=== PATIENT | female | born 1960 | race Caucasian/White ===

== ENCOUNTER 2024-10-08 10:15 | Emergency (ER) | payer MEDICARE, MEDICAID, SELFPAY ==
[2024-10-08 10:22] VITALS: BP 131/80
--- NOTE | 2024-10-08 10:35 | ED.GENMED ---
History of Present Illness
General
Chief Complaint: Head Injury
Source: palliative care specialist
Exam Limitations: none
Time Seen by Provider: 10/08/24 10:31
Nursing documentation reviewed up to this point in time: agreed with
History of Present Illness
History of Present Illness:
Patient is a 64-year-old female past medical history of seizures autism diabetes reflux hyperlipidemia brought by caregiver. Patient lives in a private home and has 24-hour caregiver. The caregiver today who was bedside patient noticed patient had
bruising which was not there previously. She contacted caregiver from yesterday who reported patient did not have a fall with her. Caregiver brought patient here to evaluate bruising to the right face and is concerned the patient fell which was
unwitnessed.
Patient is awake alert able to answer certain questions. When I asked what happened she will tell me' I fell.'
Caregiver mentions that patient's kidney function has been abnormal however this has been followed as an outpatient and she gets monthly blood work not related to today's visit.
Caregiver reports patient is at baseline mental status.
Past History
Past History
ED Past Medical History: None
ED Past Surgical History: None
Review of Systems
Review of Systems
Allergies reviewed?: Yes
All Other Systems: ROS reviewed and negative except as documented in HPI and ROS
Constitutional: Reports no symptoms
Phy Exam
General Physical Exam
General Presentation: no apparent distress
General age: appears stated age
General Skin: warm and dry
General Habitus: normal
General Mental: alert
General Hydration: appears well hydrated
Eye Exam
Eye Exam: PERRL and EOMI
Eye Exam General: PERRL: bilateral and EOM intact: bilateral
Pupil Exam: Bilateral: irregular and round
Neurological Exam
Neurological Exam: alert and other (able to answer some questions )
Musculoskeletal Exam
Musculoskeletal Exam: full ROM and other (old appearing ecchymosis to right face )
Skin Exam
Skin Exam: normal color and warm/dry
Psychiatric Exam
Psychiatric Exam: normal mood/affect
Course
Orders/Labs/Results
Orders:
Orders
10/08/24 10:40
CT Head W/o Iv Contrast Urgent
Comment:
Reason For Exam: trauma
10/08/24 10:41
CT Facial Bones W/o Iv Contras Urgent
Comment:
Reason For Exam: trauma
Vital Signs
Initial and Last Documented VS:
Initial Vital Signs
Temp Pulse Resp BP Pulse Ox
98.2 F 80 16 131/80 98
10/08/24 10:22 10/08/24 10:22 10/08/24 10:22 10/08/24 10:22 10/08/24 10:22
Last Documented Vital Signs
Temp Pulse Resp BP Pulse Ox
98.2 F 80 16 131/80 98
10/08/24 10:22 10/08/24 10:22 10/08/24 10:22 10/08/24 10:22 10/08/24 10:22
MDM/Problems Addressed
Differential Diagnosis Includes:
not limited to: contusion, facial fracture, intracranial hemorrhage
MDM/Problems Addressed:
Patient was brought for unwitnessed fall. Caregiver noticed bruising the patient's face today. Patient has intellectual disability but is able to tell me she fell. She has some old appearing bruising to right facial bones. She is not on blood
thinners. CT head and facial bones were done and negative. She has no other bony complaints or abnormalities on exam she is no acute distress and stable for discharge home.
Caregiver reports the patient is being followed by family doctor for abnormal kidney function however not pertaining to this visit
*Radiology
Radiology exam reviewed: radiology read reviewed
*Pulse Oximetry
Patient hypoxic: no
*Critical Care Note
Total Time (30-74mins, 75-104mins- exclusive of procedures): Not Applicable
ED Attending Note
-
Portions of this chart may have been created with voice recognition software.� Occasional wrong word or��sound alike� substitutions may have occurred due to the inherent limitations of voice recognition software.
Discharge Plan
Departure
Patient Disposition: Home (Routine Discharge)
Date of Disposition: 10/08/24
Time of Disposition: 12:13
Patient with high blood pressure during this ER visit?: Yes
Condition: Fair
Covid-19: Not Applicable
Discharge Problem:
Contusion
Instructions: Contusion (DC), BLOOD PRESSURE
Referrals:
Lalita James MD [Family Provider] -
Activity Restrictions/Additional Instructions:
As discussed a CAT scan was done of patient's head and facial bones both of which are negative.
Follow-up with family doctor as needed
Interventions
Interventions:
*Risk Screen - Suicide Last Done: 10/08/24 10:22
*General Assessment Last Done: 10/08/24 10:24
*Neglect/Abuse Screening Last Done: 10/08/24 10:22
*ED- Fall Risk Assessment Last Done: 10/08/24 10:25
*ED COVID-19 Vaccine History Last Done: 10/08/24 10:25
*Nursing Disposition Last Done: 10/08/24 12:27
ED- Neurological Assessment Last Done: 10/08/24 10:24
ED-Skin Assessment Last Done: 10/08/24 10:24
Discharge Date and Time
Discharge Date/Time: 10/08/24 12:27
Print Language: URDU
== END 2024-10-08 12:27 | disposition home or self-care (01) ==
LOC: EMR 10:15
PROVIDERS: EMERGENCY PHYSICIAN Emergency Medicine; FAMILY PHYSICIAN Internal Medicine
DX: S00.83XA Contusion of other part of head, initial encounter (principal); W19.XXXA Unspecified fall, initial encounter; G40.909 Epilepsy, unspecified, not intractable, without status epilepticus; F84.0 Autistic disorder; E11.9 Type 2 diabetes mellitus without complications; E78.00 Pure hypercholesterolemia, unspecified; F79 Unspecified intellectual disabilities; Z86.73 Personal history of transient ischemic attack (TIA), and cerebral infarction without residual deficits
CPT/HCPCS: 99284; 70450; 70486

== ENCOUNTER 2024-11-19 14:05 | Emergency (ER) | payer MEDICARE, MEDICAID, SELFPAY ==
[2024-11-19 14:11] VITALS: BP 104/65
--- NOTE | 2024-11-19 16:13 | ED.GENMED ---
Addendum entered and electronically signed by Petros Degroot PA-C 11/22/24 06:10:
Luminary urine culture shows greater than 100,000 colony-forming units of gram-negative bacilli. On Omnicef. Sensitivities pending.
Original Note:
History of Present Illness
<Leslie Leahy PA-C - Last Filed: 11/19/24 21:49>
General
Chief Complaint: Change in Mental Status
Source: patient and career orientation teacher
Exam Limitations: altered mental status
Time Seen by Provider: 11/19/24 15:39
Nursing documentation reviewed up to this point in time: agreed with
History of Present Illness
History of Present Illness:
Patient is a 64-year-old female with history intellectual disability, hypertension, hyperlipidemia, diabetes, epilepsy presented to the emergency department with caregivers from retirement for evaluation of altered mental status. Patient's
caregiver state that yesterday patient started singing songs which continued throughout the entire day. They state this is very atypical behavior. When patient woke this morning�she continued with random singing. Her caregivers are wondering if
she may have a UTI. However after speaking with her primary care provider they recommended evaluation in the emergency department for imaging.
They state that otherwise she is at her baseline mental status. She is alert and oriented. She is eating and drinking normally. She has had no recent fever or infectious symptoms. They deny any weakness and states that patient is ambulating at
her baseline.
Patient denies any current discomfort including headache, chest pain, shortness of breath, or abdominal pain.
They deny any recent fall or trauma.
Past History
<Leslie Leahy PA-C - Last Filed: 11/19/24 21:49>
Past History
ED Past Medical History: None
ED Past Surgical History: None
Review of Systems
<Leslie Leahy PA-C - Last Filed: 11/19/24 21:49>
Review of Systems
Allergies reviewed?: Yes
All Other Systems: ROS reviewed and negative except as documented in HPI and ROS
Phy Exam
<Leslie Leahy PA-C - Last Filed: 11/19/24 21:49>
Physical Exam
Physical Exam:
Vitals: Patient's vital signs are stable
General: Patient is well appearing, no acute distress
Skin: Warm and dry, no rashes or lesions
Head: Normocephalic, atraumatic
Eyes: Sclera nonicteric. EOMs intact. No nystagmus.
Throat: Protecting airway
Neck: Normal ROM, no cervical spine tenderness, no meningismus
Cardiac: Regular rate and rhythm, no murmurs.
Pulm: Normal respiratory effort, no wheezes, rales, rhonchi heard on exam.
Abdomen: No abdominal tenderness.
Extremities: No evidence of cyanosis or edema
Neuro: AAOx3. CN II-XII intact. No focal neurologic deficits.
Psychiatric: Normal affect.
Course
<Leslie Leahy PA-C - Last Filed: 11/19/24 21:49>
Orders/Labs/Results
Orders:
Orders
11/19/24 14:15
CT Head W/o Iv Contrast Urgent
Comment:
Reason For Exam: change in mental status
11/19/24 15:59
pacemaker [Interrogate Pacemaker- Treatment] ONCE
11/19/24 16:00
Electrocardiogram (*1) Urgent
Reason for Study: Fatigue / Weakness
EKG- Treatment ONCE
11/19/24 16:33
Complete Blood Count/With Diff Urgent
Comprehensive Metabolic Panel Urgent
Urinalysis Reflex To Culture Urgent
Date Specimen was Collected: 11/19/24
Time Specimen was Collected: 14:15
Urine Microscopic Reflex Cult Urgent
Urine Culture Urgent
KULWANT Source: U
Specimen Description:
Date Specimen was Collected: 11/19/24
Time Specimen was Collected: 14:15
11/19/24 18:29
Cefdinir [Omnicef] 300 mg PO NOW STA
Abnormal Lab Results
11/19/24
16:33
WBC 12.5 H 10^3/uL
(4.8-10.8)
RBC 3.66 L 10^6/uL
(4.20-5.40)
Hgb 11.2 L g/dL
(12.0-16.0)
Hct 33.8 L %
(37.0-47.0)
Abs Immat Gran (auto) 0.1 H 10^3/uL
(0-0.05)
Absolute Neuts (auto) 9.7 H 10^3/uL
(1.4-6.5)
Absolute Monos (auto) 1.3 H 10^3/uL
(0.1-0.6)
Immature Gran % 1.0 H %
(0-0.5)
Neutrophils % 77.6 H %
(42.2-75.2)
Lymphocytes % 10.6 L %
(20.5-51.1)
Monocytes % 10.0 H %
(1.7-9.3)
Chloride 110 H mmol/L
(98-107)
Carbon Dioxide 18 L mmol/L
(22-30)
BUN 28 H mg/dl
(7-17)
Creatinine 1.2 H mg/dL
(0.6-1.0)
ALT 42 H U/L
(0-35)
Total Protein 5.9 L g/dl
(6.3-8.2)
Urine Nitrite (Reflex) Positive A
(Negative)
Urine Bacteria (Reflex) Many A
(Negative)
11/19/24 16:33
05/02/25 16:33
Vital Signs
Initial and Last Documented VS:
Initial Vital Signs
Temp Pulse Resp BP Pulse Ox
98.1 F 65 18 104/65 97
11/19/24 14:11 11/19/24 14:11 11/19/24 14:11 11/19/24 14:11 11/19/24 14:11
Last Documented Vital Signs
Temp Pulse Resp BP Pulse Ox
98.1 F 65 20 108/68 99
11/19/24 14:11 11/19/24 18:41 11/19/24 18:41 11/19/24 18:41 11/19/24 18:41
<Radu Geiger MD - Last Filed: 11/19/24 18:30>
Orders/Labs/Results
Orders:
Orders
11/19/24 14:15
CT Head W/o Iv Contrast Urgent
Comment:
Reason For Exam: change in mental status
11/19/24 15:59
pacemaker [Interrogate Pacemaker- Treatment] ONCE
11/19/24 16:00
Electrocardiogram (*1) Urgent
Reason for Study: Fatigue / Weakness
EKG- Treatment ONCE
11/19/24 16:33
Complete Blood Count/With Diff Urgent
Comprehensive Metabolic Panel Urgent
Urinalysis Reflex To Culture Urgent
Date Specimen was Collected: 11/19/24
Time Specimen was Collected: 14:15
Urine Microscopic Reflex Cult Urgent
Urine Culture Urgent
KUL[place] Source: U
Specimen Description:
Date Specimen was Collected: 11/19/24
Time Specimen was Collected: 14:15
11/19/24 18:29
Cefdinir [Omnicef] 300 mg PO NOW STA
Abnormal Lab Results
11/19/24
16:33
WBC 12.5 H 10^3/uL
(4.8-10.8)
RBC 3.66 L 10^6/uL
(4.20-5.40)
Hgb 11.2 L g/dL
(12.0-16.0)
Hct 33.8 L %
(37.0-47.0)
Abs Immat Gran (auto) 0.1 H 10^3/uL
(0-0.05)
Absolute Neuts (auto) 9.7 H 10^3/uL
(1.4-6.5)
Absolute Monos (auto) 1.3 H 10^3/uL
(0.1-0.6)
Immature Gran % 1.0 H %
(0-0.5)
Neutrophils % 77.6 H %
(42.2-75.2)
Lymphocytes % 10.6 L %
(20.5-51.1)
Monocytes % 10.0 H %
(1.7-9.3)
Chloride 110 H mmol/L
(98-107)
Carbon Dioxide 18 L mmol/L
(22-30)
BUN 28 H mg/dl
(7-17)
Creatinine 1.2 H mg/dL
(0.6-1.0)
ALT 42 H U/L
(0-35)
Total Protein 5.9 L g/dl
(6.3-8.2)
Urine Nitrite (Reflex) Positive A
(Negative)
Urine Bacteria (Reflex) Many A
(Negative)
11/19/24 16:33
11/19/24 16:33
Vital Signs
Initial and Last Documented VS:
Initial Vital Signs
Temp Pulse Resp BP Pulse Ox
98.1 F 65 18 104/65 97
11/19/24 14:11 11/19/24 14:11 11/19/24 14:11 11/19/24 14:11 11/19/24 14:11
Last Documented Vital Signs
Temp Pulse Resp BP Pulse Ox
98.1 F 65 20 108/68 99
11/19/24 14:11 11/19/24 18:41 11/19/24 18:41 11/19/24 18:41 11/19/24 18:41
<Leslie Leahy PA-C - Last Filed: 11/19/24 21:49>
MDM/Problems Addressed
Differential Diagnosis Includes:
Not limited to: Acute dehydration, UTI, electrolyte abnormality, CVA, intracranial hemorrhage, etc.
MDM/Problems Addressed:
64-year-old female with history intellectual disability presenting with questionable change in mental status starting yesterday. No recent trauma or injury. No fevers or other infectious symptoms. Vital stable. Physical exam as above. Patient
alert and oriented x 2 which is her baseline. No focal deficits on exam. She is answering questions and moving all extremities. Cardio/pulmonary assessment unremarkable. Abdomen soft and nontender. Differential broad at this time. Will check
screening labs, head CT, and urinalysis.
Update: Labs reviewed. Mild leukocytosis of 12.5. Chemistry with mild metabolic acidosis and renal insufficiency. Urine positive for nitrate with many bacteria. Head CT without acute findings. On reassessment�patient remains very
well-appearing, nontoxic. She is eating chips and conversational. Overall impression is potential UTI with mild leukocytosis. Do not suspect central process. Patient nontoxic-appearing. At this point�feel patient stable for discharge back to
facility. Will cover with ABX for UTI. After discussion with patient's caretakers�they state that she has had no reaction to Omnicef in the past. Will give initial dose in ED tonight. Strict return precautions discussed. Advise close follow-up
with PCP. Case seen with attending physician.
Chronic conditions affecting care:
Intellectual disability
Acute Exacerbation and/or Progression of Chronic Illness:
N/A
<Leslie Leahy PA-C - Last Filed: 11/19/24 21:49>
*Radiology
Radiology exam reviewed: radiology read reviewed
*Pulse Oximetry
Patient hypoxic: no
*EKG
Interpreted by ED Provider?: NA
*Section Cutter Interpretation
Rate: Section Cutter- N/A
*Critical Care Note
Total Time (30-74mins, 75-104mins- exclusive of procedures): Not Applicable
<Leslie Leahy PA-C - Last Filed: 11/19/24 21:49>
Patient Management
Escalation/DeEscalation of care consider admission/obs:
Admit not indicated
ED Attending Note
<Leslie Leahy PA-C - Last Filed: 11/19/24 21:49>
-
Portions of this chart may have been created with voice recognition software.� Occasional wrong word or��sound alike� substitutions may have occurred due to the inherent limitations of voice recognition software.
<Radu Geiger MD - Last Filed: 11/19/24 18:30>
ED Attending Note
Patient seen and examined by attending physician: Yes
I performed the substantive portion of visit, reviewed & personally made and approve the management plan that is documented in note by myself or DINORA.: Yes
ED Attending Note:
64-year-old female singing frequently the last few days. This is new. Described as her mental status change. No other mental status issues. Patient feels fine.
On exam she is alert oriented. Some mild physical intellectual delay. She is eating chips at this time. Speech is normal. Cranial nerves II through XII intact. Nonfocal. Neck is supple. Warm and dry. Perfusing well. Abdomen nontender. She
is nonfocal.
Impression is mild leukocytosis with a questionable positive urine all other testing is stable. Do not feel she is encephalopathic or meningitic. Will cover for UTI to follow-up
Discharge Plan
Departure
Patient Disposition: Home (Routine Discharge)
Date of Disposition: 11/19/24
Time of Disposition: 18:34
Patient with high blood pressure during this ER visit?: No
Covid-19: Not Applicable
Discharge Problem:
Altered mental state, Acute UTI
Instructions: Altered Mental Status (DC), Urinary tract infection in adults - ED discharge instructions
Prescriptions:
New
cefdinir 300 mg capsule
300 mg PO BID 7 Days Qty: 14 0RF
Referrals:
Lalita James MD [Family Provider] - Follow up in 5-7 days
Activity Restrictions/Additional Instructions:
RETURN TO THE EMERGENCY DEPARTMENT ANY FEVER, CHILLS, SEVERE ABDOMINAL PAIN, INABILITY TO URINATE, CHANGES IN MENTAL STATUS, SIGNIFICANT WEAKNESS, OR ANY OTHER CONCERNS
- As discussed�your urine showed signs of infection today. Your CT scan of your head showed no acute abnormalities. Your prescription for antibiotic has been sent to the pharmacy. You should take this twice a day for a week.
- Stay well-hydrated.
- Continue to take all other medications as prescribed.
- Follow-up with primary care to ensure that symptoms are improving/for further evaluation
Monitor symptoms closely and return to the emergency department with any acute worsening/new symptoms or any other concerns
Interventions
Interventions:
*Risk Screen - Suicide Last Done: 11/19/24 14:11
*General Assessment Last Done: 11/19/24 14:11
*Neglect/Abuse Screening Last Done: 11/19/24 14:11
*Nursing Disposition Last Done: 11/19/24 18:46
ED- Pulmonary Assessment Last Done: 11/19/24 18:38
ED- Neurological Assessment Last Done: 11/19/24 18:38
ED- Cardiac Assessment Last Done: 11/19/24 18:38
Discharge Date and Time
Discharge Date/Time: 11/19/24 18:48
Print Language: SURINAMESE
[2024-11-19 16:55] LABS: % Basophils 0.3 % (0-2); % Eosinophils 0.5 % (0-6); % Lymphocytes 10.6 % (20.5-51.1); % Neutrophils 77.6 % (42.2-75.2); Absolute Eosinophils 0.1 10^3/uL (0-0.7); Absolute Immature Granulocytes 0.1 10^3/uL (0-0.05); Absolute Lymphocytes 1.3 10^3/uL (1.2-3.4); Absolute Monocytes 1.3 10^3/uL (0.1-0.6); Absolute Neutrophils 9.7 10^3/uL (1.4-6.5); Hematocrit 33.8 % (37.0-47.0); Hemoglobin 11.2 g/dL (12.0-16.0); Mean Corp Hgb Conc. 33.1 g/dL (33.0-37.0); Mean Corpuscular Hgb 30.6 pg (27.0-31.0); Mean Corpuscular Volume 92.3 fL (81.0-99.0); Mean Platelet Volume 9.6 fL (7.4-10.4); Nucleated Red Blood Cells % 0 %; Platelet Count 266 10^3/uL (130-400); Red Blood Cell Count 3.66 10^6/uL (4.20-5.40); Red Cell Dist. Width 13.7 % (11.5-14.5); White Blood Cell Count 12.5 10^3/uL (4.8-10.8)
[2024-11-19 17:05] LABS: ALT (SGPT) 42 U/L (0-35); AST (SGOT) 21 U/L (14-36); Albumin 3.6 g/dl (3.5-5.0); Alkaline Phosphatase 89 U/L (38-126); Blood Urea Nitrogen 28 mg/dl (7-17); Calcium 9.1 mg/dl (8.4-10.2); Carbon Dioxide 18 mmol/L (22-30); Chloride 110 mmol/L (98-107); Glucose 92 mg/dl (70-99); Potassium 4.3 mmol/L (3.5-5.1); Sodium 138 mmol/L (135-145); Total Bilirubin 0.4 mg/dl (0.2-1.3); Total Protein 5.9 g/dl (6.3-8.2); eGFR 50.86
[2024-11-19 17:35] LABS: Urine Albumin Negative (Neg - Trace); Urine Bilirubin Negative (Negative); Urine Character Clear (Clear); Urine Color Yellow; Urine Glucose Negative (Negative); Urine Ketone Negative (Negative); Urine Leukocyte Negative (Negative); Urine Nitrite Positive (Negative); Urine Occult Blood Negative (Negative); Urine Urobilinogen Negative (Neg - 1+)
[2024-11-19 17:44] LABS: Urine Bacteria Many (Negative); Urine Red Blood Cell 0-2 /HPF (0-2)
[2024-11-19 18:41] VITALS: BP 108/68
[2024-11-19] MEDS: OMNICEF 300 MG PO (18:44)
== END 2024-11-19 18:48 | disposition home or self-care (01) ==
LOC: EMR 14:05
PROVIDERS: Physician Assistant; Student in an Organized Health Care Education/Training Program; EMERGENCY PHYSICIAN Emergency Medicine; FAMILY PHYSICIAN Internal Medicine
DX: R41.82 Altered mental status, unspecified (principal); N39.0 Urinary tract infection, site not specified; I10 Essential (primary) hypertension; E78.00 Pure hypercholesterolemia, unspecified; E11.9 Type 2 diabetes mellitus without complications; E87.20 Acidosis, unspecified; F79 Unspecified intellectual disabilities; G40.909 Epilepsy, unspecified, not intractable, without status epilepticus
CPT/HCPCS: 99284; 70450; 80053; 81003; 81015; 85025; 87077; 87086

== ENCOUNTER 2025-04-07 10:58 | Emergency (ER) | payer MEDICARE, MEDICAID, SELFPAY ==
[2025-04-07 11:00] VITALS: BP 113/57
[2025-04-07 11:37] VITALS: BMI 27.3
--- NOTE | 2025-04-07 11:52 | ED.GENMED ---
History of Present Illness
General
Chief Complaint: Abdominal Symptoms
Source: patient and care connector
Exam Limitations: developmental stage
Time Seen by Provider: 04/07/25 11:25
Nursing documentation reviewed up to this point in time: agreed with
History of Present Illness
History of Present Illness:
64-year-old female special needs lives in a facility for special needs people has 24-hour caregivers, been on a cephalosporin for UTI for a few days, apparently has not had a bowel movement since April 02, some nausea when she eats, denies any
pain when she urinates, no vomiting history obtained from the patient is limited due to her baseline altered mental status most history obtained through her caregiver who knows her well, does not typically have a lot of problems with constipation
she does take lactulose, does appear to be on tramadol, and a host of other medications,
Past History
Past History
ED Past Medical History: None
ED Past Surgical History: None
Phy Exam
Physical Exam
Physical Exam:
Physical Exam
General: Nontoxic special-needs female
Neck: No jaundice
Heart: s1/s2 regular rate and rhythm, no murmur. equal radial pulses.
Lungs: no acute respiratory distress.
Abdomen: Soft distended bowel sounds are present nontender
Neuro: alert and oriented. no focal neurological deficits
Skin: no rash
Psychiatric: Flat affect
Extremities: no edema.
Course
Orders/Labs/Results
Orders:
Orders
04/07/25 11:40
Complete Blood Count/With Diff Urgent
Comprehensive Metabolic Panel Urgent
Lipase Urgent
Urinalysis Reflex To Culture Urgent
Date Specimen was Collected: 04/07/25
Time Specimen was Collected: 11:36
Urine Microscopic Reflex Cult Urgent
Urine Culture Urgent
KULW[place] Source: U
Specimen Description:
Date Specimen was Collected: 04/07/25
Time Specimen was Collected: 11:36
04/07/25 11:43
Obstruct Series W/PA Chest [CR Obstruct Series W/pa Chest] Urgent
Comment:
Reason For Exam: full of stool, uti
04/07/25 12:26
Electrocardiogram (*1) Urgent
Reason for Study: Abdominal Pain
CT Abd/pel W Iv And Oral Contr Urgent
Comment:
Reason For Exam: nv constipaiton
EKG- Treatment ONCE
0.9% Sodium Chloride 1000 ml [Nss] 1,500 ml IV BOLUS
Iohexol [Omnipaque] See Protocol PO NOW STA
04/07/25 16:19
Magnesium Citrate [Citroma] 300 ml PO ONCE ONE
Abnormal Lab Results
04/07/25
11:40
WBC 12.8 H 10^3/uL
(4.8-10.8)
RBC 4.14 L 10^6/uL
(4.20-5.40)
MCHC 31.5 L g/dL
(33.0-37.0)
Abs Immat Gran (auto) 0.1 H 10^3/uL
(0-0.05)
Absolute Neuts (auto) 10.4 H 10^3/uL
(1.4-6.5)
Absolute Lymphs (auto) 1.0 L 10^3/uL
(1.2-3.4)
Absolute Monos (auto) 1.2 H 10^3/uL
(0.1-0.6)
Immature Gran % 0.8 H %
(0-0.5)
Neutrophils % 81.2 H %
(42.2-75.2)
Lymphocytes % 7.8 L %
(20.5-51.1)
Chloride 108 H mmol/L
(98-107)
BUN 27 H mg/dl
(7-17)
Creatinine 1.3 H mg/dL
(0.6-1.0)
AST 59 H U/L
(14-36)
ALT 144 H U/L
(0-35)
Alkaline Phosphatase 186 H U/L
(38-126)
Leukocyte Esterase Rfl 1+ A
(Negative)
Urine WBC (Reflex) 11-15 A /HPF
(0-5)
Urine Bacteria (Reflex) Few A
(Negative)
04/07/25 11:40
04/07/25 11:40
Vital Signs
Initial and Last Documented VS:
Initial Vital Signs
Temp Pulse Resp BP Pulse Ox
98.3 F 73 16 113/57 99
04/07/25 11:00 04/07/25 11:00 04/07/25 11:00 04/07/25 11:00 04/07/25 11:00
Last Documented Vital Signs
Temp Pulse Resp BP Pulse Ox
98.3 F 73 16 113/57 99
04/07/25 11:00 04/07/25 11:00 04/07/25 11:00 04/07/25 11:00 04/07/25 11:55
MDM/Problems Addressed
Differential Diagnosis Includes:
Constipation UTI electrolyte abnormality ileus obstruction less like
MDM/Problems Addressed:
Constipation
Chronic conditions affecting care:
Mental illness polypharmacy
Acute Exacerbation and/or Progression of Chronic Illness:
Mental illness
*Radiology
Radiology exam reviewed: preliminary read by ED provider
*Pulse Oximetry
SaO2: 99
Oxygen Mode of Delivery: Room air
Patient hypoxic: no
*Critical Care Note
Total Time (30-74mins, 75-104mins- exclusive of procedures): Not Applicable
Update Note
Update Note:
12:30 PM update labs noted creatinine looks stable obstruction series noted will prep with IV and oral contrast start IV saline hydration
3:[address] report noted will give a dose of mag citrate
ED Attending Note
-
Portions of this chart may have been created with voice recognition software.� Occasional wrong word or��sound alike� substitutions may have occurred due to the inherent limitations of voice recognition software.
Discharge Plan
Departure
Patient Disposition: Home (Routine Discharge)
Date of Disposition: 04/07/25
Time of Disposition: 16:22
Patient with high blood pressure during this ER visit?: No
Condition: Good
Discharge Problem:
Constipation
Instructions: Constipation, Adult (DC)
Prescriptions:
No Action
cefdinir 300 mg capsule
300 mg PO BID 7 Days Qty: 14 0RF
Rx Instructions:
for 7 days starting 04/04/25
metformin 500 mg Tablet
500 mg PO DAILY
atorvastatin [Lipitor] 20 mg Tablet
20 mg PO QPM
acetazolamide 500 mg Capsule, Extended Release
500 mg PO BID
amiodarone 200 mg Tablet
200 mg PO DAILY
olanzapine 5 mg Tablet
5 mg PO HS
clopidogrel [Plavix] 75 mg Tablet
75 mg PO DAILY
ascorbic acid (vitamin C) [Vitamin C] 500 mg Tablet
500 mg PO DAILY
levothyroxine [Synthroid] 50 mcg Tablet
50 mcg PO DAILY
pantoprazole [Protonix] 40 mg Tablet,Delayed Release (Dr/Ec)
40 mg PO DAILY
ferrous sulfate 325 mg (65 mg iron) Tablet
325 mg PO DAILY
metoprolol succinate [Toprol XL] 25 mg Tablet Extended Release 24 Hr
25 mg PO BID
fluticasone propionate [Flonase] 50 mcg/actuation [place],Suspension
2 spray INTRANASAL DAILY
lisinopril 2.5 mg Tablet
2.5 mg PO DAILY
ezetimibe [Zetia] 10 mg Tablet
10 mg PO DAILY
lactulose 10 gram/15 mL Solution
10 g PO BID
cholecalciferol (vitamin D3) [Vitamin D3] 25 mcg (1,000 unit) Tablet
25 mcg PO QPM
melatonin 5 mg Tablet
5 mg PO DAILY@1700
potassium chloride 20 mEq Tablet Extended Release
20 meq PO DAILY
magnesium oxide 400 mg magnesium Tablet
400 mg PO DAILY
Referrals:
Lalita James MD [Family Provider, Internal Medicine] - Next open appointment
Activity Restrictions/Additional Instructions:
Drink plenty of fluids continue all your medications including your lactulose
Interventions
Interventions:
*Risk Screen - Suicide Last Done: 04/07/25 11:00
*Neglect/Abuse Screening Last Done: 04/07/25 11:00
BI-Uvcbos-[id number] Assessment Last Done: 04/07/25 11:37
Discharge Date and Time
Print Language: SAUDI ARABIAN
[2025-04-07 11:56] LABS: Hematocrit 40.0 % (37.0-47.0); Hemoglobin 12.6 g/dL (12.0-16.0); Mean Corp Hgb Conc. 31.5 g/dL (33.0-37.0); Mean Corpuscular Volume 96.6 fL (81.0-99.0); Nucleated Red Blood Cells % 0 %; Platelet Count 273 10^3/uL (130-400); Red Cell Dist. Width 13.0 % (11.5-14.5)
[2025-04-07 11:57] LABS: Urine Character Clear (Clear)
[2025-04-07 12:02] LABS: ALT (SGPT) 144 U/L (0-35); AST (SGOT) 59 U/L (14-36); Albumin 4.1 g/dl (3.5-5.0); Alkaline Phosphatase 186 U/L (38-126); Blood Urea Nitrogen 27 mg/dl (7-17); Calcium 9.2 mg/dl (8.4-10.2); Carbon Dioxide 23 mmol/L (22-30); Chloride 108 mmol/L (98-107); Estimated Creatinine Clearance 43 ml/min; Glucose 90 mg/dl (70-99); Lipase 165 U/L (23-300); Potassium 4.5 mmol/L (3.5-5.1); Sodium 138 mmol/L (135-145); Total Protein 6.7 g/dl (6.3-8.2); eGFR 46.21
[2025-04-07 12:18] LABS: Urine Red Blood Cell 0-2 /HPF (0-2)
[2025-04-07] MEDS: OMNIPAQUE 50 ML PO (12:42)
[2025-04-07] MEDS: NSS 1500 IV (12:44)
[2025-04-07] MEDS: CITROMA 300 ML PO (16:30)
[2025-04-07 16:55] VITALS: BP 115/60
== END 2025-04-07 16:58 | disposition home or self-care (01) ==
LOC: EMR 10:58
PROVIDERS: EMERGENCY PHYSICIAN Emergency Medicine; FAMILY PHYSICIAN Internal Medicine
DX: K59.00 Constipation, unspecified (principal)
CPT/HCPCS: 99284; 96360; 74022; 74177; 80053; 81003; 81015; 83690; 85025; 87086; 93005; Q9967